=== PATIENT | female | born 1990 | race Caucasian/White ===

== ENCOUNTER 2018-03-24 16:53 | Outpatient (CLI) | END 2018-03-24 21:24 | disposition home or self-care (01) ==

== ENCOUNTER 2018-03-28 08:30 | Inpatient (IN) | END 2018-03-31 14:05 | disposition home or self-care (01) | DRG 775 ==

== ENCOUNTER 2018-04-15 04:44 | Inpatient (IN) | END 2018-04-15 14:20 | disposition home or self-care (01) | DRG 769 ==